=== PATIENT | male | born 1935 | race Caucasian/White ===

== ENCOUNTER 2016-06-25 07:35 | Emergency (ER) | payer OTHER ==
[~2016-06-25] VITALS: Ht 172.7 cm; Wt 80.0 kg
[~2016-06-25 07:35] MED LIST: ALLOPURINOL100 MG PO; AMLODIPINE BESYL5 MG PO; LISINOPRIL10 MG PO; LO-DOSE ASPIRIN81 M1 PO; METFORMIN HCL500 MG PO; XANAX2 MG PO
[2016-06-25 08:50] LABS: HEMATOCRIT 54.8 % (38.0-50.0); MCHC 34.5 G/DL (30.0-36.0); MCV 86.8 FL (86-99); MEAN PLAT.VOLUME 10.5 uM^3 (9.0-12.4); PLATELET COUNT 389 K/uL (156-360); RBC DIS.WIDTH-SD 50.6 % (39-53); RED BLOOD COUNT 6.31 M/uL (4.00-5.50); WHITE BLOOD COUNT 19.5 K/uL (4.1-10.2)
[2016-06-25 09:01] LABS: CHLORIDE 111 mEq/L (99-109); POTASSIUM 4.3 mEq/L (3.7-5.4); SODIUM 140 mEq/L (136-147)
[2016-06-25 09:03] LABS: GLUCOSE 185 mg/dL (70-99)
[2016-06-25 09:04] LABS: ANION GAP 10 MEQ/L (2-14)
[2016-06-25 09:05] LABS: TOTAL BILIRUBIN 2.1 mg/dL (0.0-1.0)
[2016-06-25 09:06] LABS: ALKALINE PHOSPHATASE 116 IU/L (3-129)
[2016-06-25 09:07] LABS: GFR ESTIMATE (CALCULATED) 45 mL/min/
[2016-06-25 09:08] LABS: UREA NITROGEN (BUN) 20 mg/dL (9-23)
[2016-06-25 11:09] LABS: HEMATOLOGY COMMENT 1 SMEAR COMPATIBLE; USER ID MCB
[2016-06-25 11:10] LABS: BASOPHIL COUNT 0.2 K/uL (0-0.1); EOSINOPHIL (%) 3.2 % (0-5); EOSINOPHIL COUNT 0.6 K/uL (0-0.3); IMMATURE GRANULOCYTE (%) 0.5 % (0.0-0.7); LYMPHOCYTE COUNT 1.6 K/uL (1.0-2.8); MONOCYTE (%) 5.5 % (3-12); MONOCYTE COUNT 1.1 K/uL (0-0.8)
[2016-06-25] MEDS ORDERED: CLINDAMYCIN HC300 MG PO (12:48)
[2016-06-25] MEDS ORDERED: PERCOCET 5/31 TABLET PO (12:48)
[2016-06-25 13:16] VITALS: BP 163/72
== END 2016-06-25 13:30 | disposition home or self-care (01) ==
LOC: EME 07:35
PROVIDERS: Physician Assistant
PROC: 0D9QXZZ Drainage of Anus, External Approach (ICD-10-PCS; principal; 2016-06-25)
DX: K61.0 Anal abscess (principal); E86.0 Dehydration; K92.2 Gastrointestinal hemorrhage, unspecified; I10 Essential (primary) hypertension; Z85.528 Personal history of other malignant neoplasm of kidney; Z90.5 Acquired absence of kidney; Z87.442 Personal history of urinary calculi; Z88.0 Allergy status to penicillin
CPT/HCPCS: 74176; 80053; 83605; 85025; 87070; 87075; 87076; 87077; 87185; 87186; 87205; 99281; 99284; J7120

== ENCOUNTER 2016-06-25 17:49 | Emergency (ER) | payer OTHER ==
[~2016-06-25] VITALS: Ht 172.7 cm; Wt 81.8 kg
[~2016-06-25 17:49] MED LIST changes: +CLINDAMYCIN HC300 MG PO; +PERCOCET 5/31 TABLET PO
[2016-06-25 20:26] LABS: HEMATOCRIT 54.5 % (38.0-50.0); MCH 29.8 PG (29.0-34.0); MCHC 33.8 G/DL (30.0-36.0); MCV 88.2 FL (86-99); MEAN PLAT.VOLUME 10.4 uM^3 (9.0-12.4); PLATELET COUNT 432 K/uL (156-360); RBC DIS.WIDTH-SD 51.3 % (39-53); RED BLOOD COUNT 6.18 M/uL (4.00-5.50); WHITE BLOOD COUNT 19.3 K/uL (4.1-10.2)
[2016-06-25 21:13] VITALS: BP 172/80
== END 2016-06-25 21:14 | disposition home or self-care (01) ==
LOC: EME 17:49
PROVIDERS: Emergency Medicine
DX: K61.0 Anal abscess (principal); K92.1 Melena; Z48.815 Encounter for surgical aftercare following surgery on the digestive system; Z98.890 Other specified postprocedural states; I10 Essential (primary) hypertension; Z79.82 Long term (current) use of aspirin; Z87.891 Personal history of nicotine dependence
CPT/HCPCS: 85027; 99281; 99284

== ENCOUNTER 2016-08-19 03:01 | Inpatient (IN) | payer OTHER ==
[~2016-08-19] VITALS: Ht 172.7 cm; Wt 80.0 kg
[2016-08-19 03:58] LABS: BASOPHIL COUNT 0.1 K/uL (0-0.1); EOSINOPHIL (%) 0.1 % (0-5); HEMATOCRIT 56.7 % (38.0-50.0); IMMATURE GRANULOCYTE (%) 1.3 % (0.0-0.7); IMMATURE GRANULOCYTE COUNT 0.3 K/uL; INSTRUMENT ABS NEUTROPHIL CT 22.5 K/uL; MCH 29.4 PG (29.0-34.0); MCHC 32.8 G/DL (30.0-36.0); MCV 89.6 FL (86-99); MEAN PLAT.VOLUME 10.6 uM^3 (9.0-12.4); MONOCYTE (%) 5.2 % (3-12); MONOCYTE COUNT 1.3 K/uL (0-0.8); NEUTROPHIL (%) 89.1 % (45-76); NEUTROPHIL COUNT 22.5 K/uL (1.8-6.4); PLATELET COUNT 374 K/uL (156-360); RBC DIS.WIDTH-CV 17.6 % (11.8-14.6); RED BLOOD COUNT 6.33 M/uL (4.00-5.50); WHITE BLOOD COUNT 25.3 K/uL (4.1-10.2)
[2016-08-19 04:09] LABS: CHLORIDE 109 mEq/L (99-109); POTASSIUM 4.1 mEq/L (3.7-5.4); SODIUM 139 mEq/L (136-147)
[2016-08-19 04:11] LABS: GLUCOSE 240 mg/dL (70-99)
[2016-08-19 04:12] LABS: ANION GAP 12 MEQ/L (2-14)
[2016-08-19 04:13] LABS: TOTAL BILIRUBIN 3.7 mg/dL (0.0-1.0)
[2016-08-19 04:14] LABS: ALKALINE PHOSPHATASE 115 IU/L (3-129)
[2016-08-19 04:15] LABS: GFR ESTIMATE (CALCULATED) 42 mL/min/
[2016-08-19 04:16] LABS: TROP-I INTERPRETATION NEGATIVE; TROPONIN-I 0.06 ng/mL (0.0-0.30); UREA NITROGEN (BUN) 28 mg/dL (9-23)
[2016-08-19 06:01] LABS: CARBON DIOXIDE (BICARBONATE) 24.5 MEQ/L (20-31)
[2016-08-19 06:49] LABS: POINT-OF-CARE METER ID UU13113702
[2016-08-19 07:29] VITALS: BP 146/70
[2016-08-19 07:31] VITALS: BP 146/70
[2016-08-19 09:24] LABS: INTER. NORMALIZED RATIO 1.4
[2016-08-19 09:35] LABS: ALKALINE PHOSPHATASE 98 IU/L (3-129); ANION GAP 9 MEQ/L (2-14); CHLORIDE 106 MEQ/L (99-109); GFR ESTIMATE (CALCULATED) 42 mL/min/; GLUCOSE 169 mg/dL (70-99); POTASSIUM 4.3 MEQ/L (3.7-5.4); SAMPLE HEMOLYSIS CHECK 0; SAMPLE ICTERIC CHECK 0; SAMPLE LIPEMIA CHECK 0; SODIUM 140 MEQ/L (136-147); UREA NITROGEN (BUN) 30 mg/dL (9-23)
[2016-08-19 09:40] LABS: TROP-I INTERPRETATION NEGATIVE; TROPONIN-I 0.11 ng/mL (0.0-0.30)
[2016-08-19 09:40] LABS: POINT-OF-CARE METER ID UU13113698
[2016-08-19 10:10] LABS: BASOPHIL COUNT 0.2 K/uL (0-0.1); EOSINOPHIL (%) 0.2 % (0-5); EOSINOPHIL COUNT 0.1 K/uL (0-0.3); HEMATOCRIT 53.9 % (38.0-50.0); IMMATURE GRANULOCYTE (%) 1.2 % (0.0-0.7); IMMATURE GRANULOCYTE COUNT 0.3 K/uL; INSTRUMENT ABS NEUTROPHIL CT 21.9 K/uL; LYMPHOCYTE COUNT 1.9 K/uL (1.0-2.8); MCH 29.6 PG (29.0-34.0); MCHC 33.2 G/DL (30.0-36.0); MCV 89.1 FL (86-99); MEAN PLAT.VOLUME 11.1 uM^3 (9.0-12.4); MONOCYTE (%) 6.2 % (3-12); MONOCYTE COUNT 1.6 K/uL (0-0.8); NEUTROPHIL (%) 84.5 % (45-76); NEUTROPHIL COUNT 21.9 K/uL (1.8-6.4); PLATELET COUNT 375 K/uL (156-360); RBC DIS.WIDTH-CV 16.6 % (11.8-14.6); RED BLOOD COUNT 6.05 M/uL (4.00-5.50); WHITE BLOOD COUNT 25.8 K/uL (4.1-10.2)
[2016-08-19 11:13] VITALS: BP 132/69
[2016-08-19 11:57] LABS: POINT-OF-CARE METER ID UU13113698
[2016-08-19] MEDS ORDERED: LISINOPRIL10 MG PO (15:12)
[2016-08-19] MEDS ORDERED: GABAPENTIN300 MG PO (15:12)
[2016-08-19] MEDS ORDERED: ALLOPURINOL100 MG PO (15:13)
[2016-08-19] MEDS ORDERED: ASPIRIN81 M2 PO (15:13)
[2016-08-19] MEDS ORDERED: GLUCOPHAGE500 MG PO (15:13)
[2016-08-19] MEDS ORDERED: ALPRAZOLAM2 MG PO (15:14)
[2016-08-19] MEDS ORDERED: AMLODIPINE BESYL5 MG PO (15:15)
[2016-08-19 16:13] VITALS: BP 139/69
[2016-08-19 16:50] LABS: TROP-I INTERPRETATION NEGATIVE; TROPONIN-I 0.08 ng/mL (0.0-0.30)
[2016-08-19 17:07] LABS: POINT-OF-CARE METER ID UU13113698
[2016-08-19 20:27] VITALS: BP 188/84
[2016-08-19 21:11] LABS: INFLUENZA A VIRAL ANTIGEN NEGATIVE; INFLUENZA B VIRAL ANTIGEN NEGATIVE
[2016-08-19 22:01] LABS: POINT-OF-CARE METER ID UU13113698
[2016-08-19 23:47] VITALS: BP 163/76
[2016-08-20 01:05] VITALS: BP 172/86
[2016-08-20 03:30] VITALS: BP 177/86
[2016-08-20 05:26] VITALS: BP 142/76
[2016-08-20 06:54] LABS: BASOPHIL COUNT 0.2 K/uL (0-0.1); EOSINOPHIL (%) 2.8 % (0-5); EOSINOPHIL COUNT 0.5 K/uL (0-0.3); HEMATOCRIT 52.5 % (38.0-50.0); IMMATURE GRANULOCYTE (%) 0.5 % (0.0-0.7); IMMATURE GRANULOCYTE COUNT 0.1 K/uL; LYMPHOCYTE COUNT 2.2 K/uL (1.0-2.8); MCH 29.6 PG (29.0-34.0); MCHC 32.8 G/DL (30.0-36.0); MCV 90.2 FL (86-99); MEAN PLAT.VOLUME 10.9 uM^3 (9.0-12.4); MONOCYTE (%) 4.7 % (3-12); MONOCYTE COUNT 0.9 K/uL (0-0.8); NEUTROPHIL (%) 79.5 % (45-76); PLATELET COUNT 360 K/uL (156-360); RBC DIS.WIDTH-CV 16.7 % (11.8-14.6); RBC DIS.WIDTH-SD 54.4 % (39-53); RED BLOOD COUNT 5.82 M/uL (4.00-5.50); WHITE BLOOD COUNT 18.9 K/uL (4.1-10.2)
[2016-08-20 07:07] LABS: ANION GAP 8 MEQ/L (2-14); CHLORIDE 107 MEQ/L (99-109); GFR ESTIMATE (CALCULATED) 42 mL/min/; GLUCOSE 147 mg/dL (70-99); HDL CHOLESTEROL 25 MG/DL (Desirable>=40); LDL CHOLESTEROL 52 mg/dL (Desirable<100); NON-HDL CHOLESTEROL 75 mg/dL (Desirable<160); POTASSIUM 4.6 MEQ/L (3.7-5.4); SAMPLE HEMOLYSIS CHECK 0; SAMPLE ICTERIC CHECK 0; SAMPLE LIPEMIA CHECK 0; SODIUM 139 MEQ/L (136-147); TOTAL CHOLESTEROL 100 mg/dL (Desirable<200); TRIGLYCERIDES 116 MG/DL (Normal: <150); UREA NITROGEN (BUN) 31 mg/dL (9-23)
[2016-08-20 07:45] VITALS: BP 135/97
[2016-08-20 08:26] LABS: Estimated Average Glucose 148 mg/dL (70-123); HEMOGLOBIN A1c (GLYCOHEMOGLOB) 6.8 % HGB (Below 5.7)
[2016-08-20 09:12] LABS: POINT-OF-CARE METER ID UU13113807
[2016-08-20 13:23] LABS: POINT-OF-CARE METER ID UU13113807
[2016-08-20 17:24] LABS: POINT-OF-CARE METER ID UU13113807
[2016-08-20 20:00] VITALS: BP 156/71
[2016-08-20 21:34] LABS: POINT-OF-CARE METER ID UU13113698
[2016-08-21] VITALS: BP 163/74
[2016-08-21 04:00] VITALS: BP 175/81
[2016-08-21 07:58] VITALS: BP 167/74
[2016-08-21 08:23] LABS: HEMATOCRIT 54.4 % (38.0-50.0); MCH 29.3 PG (29.0-34.0); MCHC 32.2 G/DL (30.0-36.0); MCV 91.1 FL (86-99); MEAN PLAT.VOLUME 10.7 uM^3 (9.0-12.4); PLATELET COUNT 397 K/uL (156-360); RBC DIS.WIDTH-CV 16.8 % (11.8-14.6); RBC DIS.WIDTH-SD 55.2 % (39-53); RED BLOOD COUNT 5.97 M/uL (4.00-5.50); WHITE BLOOD COUNT 16.4 K/uL (4.1-10.2)
[2016-08-21 08:35] LABS: POINT-OF-CARE METER ID UU13113807; POINT-OF-CARE USER ID 606021404
[2016-08-21 08:43] LABS: ANION GAP 8 MEQ/L (2-14); CHLORIDE 109 MEQ/L (99-109); GFR ESTIMATE (CALCULATED) 42 mL/min/; GLUCOSE 142 mg/dL (70-99); SAMPLE HEMOLYSIS CHECK 0; SAMPLE ICTERIC CHECK 0; SAMPLE LIPEMIA CHECK 0; SODIUM 142 MEQ/L (136-147); UREA NITROGEN (BUN) 27 mg/dL (9-23)
[2016-08-21 11:20] VITALS: BP 165/77
[2016-08-21 12:24] LABS: POINT-OF-CARE METER ID UU13113807
[2016-08-21 16:28] VITALS: BP 172/78
[2016-08-21 17:06] LABS: POINT-OF-CARE METER ID UU13113698; POINT-OF-CARE USER ID 606021404
[2016-08-21 20:00] VITALS: BP 177/81
[2016-08-21 21:44] LABS: POINT-OF-CARE METER ID UU13113698
[2016-08-22] VITALS (7 sets, daily range): BP systolic 119–176; BP diastolic 70–83
[2016-08-22 05:42] LABS: HEMATOCRIT 50.7 % (38.0-50.0); MCH 29.2 PG (29.0-34.0); MCV 91.4 FL (86-99); MEAN PLAT.VOLUME 10.7 uM^3 (9.0-12.4); PLATELET COUNT 378 K/uL (156-360); RBC DIS.WIDTH-CV 16.3 % (11.8-14.6); RBC DIS.WIDTH-SD 54.7 % (39-53); RED BLOOD COUNT 5.55 M/uL (4.00-5.50); WHITE BLOOD COUNT 17.1 K/uL (4.1-10.2)
[2016-08-22 06:02] LABS: ANION GAP 6 MEQ/L (2-14); CHLORIDE 108 MEQ/L (99-109); GFR ESTIMATE (CALCULATED) 45 mL/min/; GLUCOSE 147 mg/dL (70-99); POTASSIUM 4.6 MEQ/L (3.7-5.4); SAMPLE HEMOLYSIS CHECK 0; SAMPLE ICTERIC CHECK 0; SAMPLE LIPEMIA CHECK 0; SODIUM 141 MEQ/L (136-147); UREA NITROGEN (BUN) 28 mg/dL (9-23)
[2016-08-22 07:39] LABS: POINT-OF-CARE METER ID UU13113807
[2016-08-22 08:57] LABS: INTERNAL CONTROL VALID? YES
[2016-08-22 11:23] LABS: POINT-OF-CARE METER ID UU13113807
[2016-08-22 17:11] LABS: POINT-OF-CARE METER ID UU13113807
[2016-08-22 21:52] LABS: POINT-OF-CARE METER ID UU13113807
[2016-08-23 04:01] VITALS: BP 140/63
[2016-08-23 06:25] LABS: ANION GAP 9 MEQ/L (2-14); CHLORIDE 107 MEQ/L (99-109); GFR ESTIMATE (CALCULATED) 39 mL/min/; GLUCOSE 161 mg/dL (70-99); POTASSIUM 4.7 MEQ/L (3.7-5.4); SAMPLE HEMOLYSIS CHECK 0; SAMPLE ICTERIC CHECK 0; SAMPLE LIPEMIA CHECK 0; SODIUM 141 MEQ/L (136-147); UREA NITROGEN (BUN) 29 mg/dL (9-23)
[2016-08-23 06:37] LABS: HEMATOCRIT 53.3 % (38.0-50.0); MCH 29.4 PG (29.0-34.0); MCHC 32.3 G/DL (30.0-36.0); MEAN PLAT.VOLUME 10.9 uM^3 (9.0-12.4); PLATELET COUNT 414 K/uL (156-360); RBC DIS.WIDTH-CV 16.4 % (11.8-14.6); RBC DIS.WIDTH-SD 54.2 % (39-53); RED BLOOD COUNT 5.86 M/uL (4.00-5.50); WHITE BLOOD COUNT 18.3 K/uL (4.1-10.2)
[2016-08-23 08:00] VITALS: BP 153/97
[2016-08-23 08:18] LABS: POINT-OF-CARE METER ID UU13113807
[2016-08-23 12:00] VITALS: BP 153/74
[2016-08-23 13:00] LABS: POINT-OF-CARE METER ID UU13113807
[2016-08-23] MEDS ORDERED: CEFDINIR300 MG PO (14:45)
[2016-08-23] MEDS ORDERED: AMLODIPINE BESY10 MG PO (14:45)
== END 2016-08-23 15:25 | disposition home or self-care (01) | DRG 871 ==
LOC: EME → EDBD 03:01 → EDOF 05:35 → 4SOUTH 05:35
PROVIDERS: Emergency Medicine; Hospitalist; Internal Medicine; Physician Assistant Medical
DX: A41.9 Sepsis, unspecified organism (principal); J18.9 Pneumonia, unspecified organism; I12.9 Hypertensive chronic kidney disease with stage 1 through stage 4 chronic kidney disease, or unspecified chronic kidney disease; E11.22 Type 2 diabetes mellitus with diabetic chronic kidney disease; N18.3 Chronic kidney disease, stage 3 (moderate); E86.0 Dehydration; Z85.528 Personal history of other malignant neoplasm of kidney; Z90.5 Acquired absence of kidney; R94.31 Abnormal electrocardiogram [ECG] [EKG]; R53.1 Weakness; R79.89 Other specified abnormal findings of blood chemistry
CPT/HCPCS: 70140; 70450; 70551; 71010; 80048; 80053; 80061; 81003; 82803; 82948; 83036; 83605; 83735; 83880; 84484; 85025; 85025 91; 85027; 85610; 85730; 87040; 87070; 87086; 87205; 87449; 87502; 92610 GN; 93005; 93306; 93880; 94640; 94640 76; 94799; 97530 GO; 97530 GP; 99202; 99281; 99285; J0456; J0696; J1644; J1815; J7050; J7120

== ENCOUNTER 2016-12-10 16:24 | Inpatient (IN) | payer OTHER ==
[~2016-12-10] VITALS: Ht 172.7 cm; Wt 79.3 kg
[~2016-12-10 16:24] MED LIST changes: +AMLODIPINE BESY10 MG PO; +ASPIRIN81 M2 PO; +CEFDINIR300 MG PO
[2016-12-10 17:26] LABS: CHLORIDE 109 mEq/L (99-109); POTASSIUM 4.9 mEq/L (3.7-5.4); SODIUM 141 mEq/L (136-147)
[2016-12-10 17:28] LABS: GLUCOSE 125 mg/dL (70-99)
[2016-12-10 17:29] LABS: ANION GAP 10 MEQ/L (2-14)
[2016-12-10 17:32] LABS: GFR ESTIMATE (CALCULATED) 37 mL/min/; INTER. NORMALIZED RATIO 1.1; PROTHROMBIN TIME 12.6 SEC (10.2-12.9)
[2016-12-10 17:33] LABS: HEMATOCRIT 62.1 % (38.0-50.0); MCH 27.9 PG (29.0-34.0); MCV 87.2 FL (86-99); MEAN PLAT.VOLUME 10.7 uM^3 (9.0-12.4); PLATELET COUNT 414 K/uL (156-360); RBC DIS.WIDTH-CV 16.9 % (11.8-14.6); RBC DIS.WIDTH-SD 47.7 % (39-53); RED BLOOD COUNT 7.12 M/uL (4.00-5.50); UREA NITROGEN (BUN) 26 mg/dL (9-23); WHITE BLOOD COUNT 18.8 K/uL (4.1-10.2)
[2016-12-10 17:35] LABS: PTT 47.8 SEC (25-37)
[2016-12-10 20:45] VITALS: BP 168/80
[2016-12-10 22:53] VITALS: BP 168/80
[2016-12-11 01:29] LABS: INTER. NORMALIZED RATIO 1.2; PROTHROMBIN TIME 13.2 SEC (10.2-12.9)
[2016-12-11 02:13] LABS: PTT ND SEC (25-37)
[2016-12-11 02:52] LABS: HEMATOCRIT 59.7 % (38.0-50.0); MCH 28.2 PG (29.0-34.0); MCHC 32.2 G/DL (30.0-36.0); MCV 87.7 FL (86-99); MEAN PLAT.VOLUME 10.4 uM^3 (9.0-12.4); PLATELET COUNT 399 K/uL (156-360); RBC DIS.WIDTH-CV 16.4 % (11.8-14.6); RBC DIS.WIDTH-SD 48.3 % (39-53); RED BLOOD COUNT 6.81 M/uL (4.00-5.50); WHITE BLOOD COUNT 19.3 K/uL (4.1-10.2)
[2016-12-11 03:25] LABS: CHLORIDE 107 mEq/L (99-109); POTASSIUM 5.2 mEq/L (3.7-5.4); SODIUM 139 mEq/L (136-147)
[2016-12-11 03:28] LABS: ANION GAP 9 MEQ/L (2-14); GLUCOSE 197 mg/dL (70-99)
[2016-12-11 03:31] LABS: ALKALINE PHOSPHATASE 146 IU/L (3-129); GFR ESTIMATE (CALCULATED) 34 mL/min/
[2016-12-11 03:32] LABS: UREA NITROGEN (BUN) 29 mg/dL (9-23)
[2016-12-11 04:19] VITALS: BP 166/72
[2016-12-11] MEDS ORDERED: LISINOPRIL10 MG PO ×2 (08:10→09:05)
[2016-12-11 08:37] VITALS: BP 160/77
[2016-12-11] MEDS ORDERED: GABAPENTIN300 MG PO (09:05)
[2016-12-11] MEDS ORDERED: ALLOPURINOL100 MG PO (09:08)
[2016-12-11] MEDS ORDERED: GLUCOPHAGE500 MG PO (09:08)
[2016-12-11] MEDS ORDERED: ALPRAZOLAM2 MG PO (09:08)
[2016-12-11] MEDS ORDERED: NORVASC10 MG PO (09:11)
[2016-12-11] MEDS ORDERED: FLUOXETINE HCL20 MG PO (09:13)
[2016-12-11 17:41] LABS: ABS NEUTROPHIL COUNT 16.1; ANISOCYTOSIS 1+; ATYPICAL LYMPHOCYTE 2.6 %; BAND NEUTROPHILS 3.5 % (0-8.0); BASOPHILS 2.6 %; EOSINOPHIL ABS CT 0.2; EOSINOPHILS 0.9 % (0-5.0); HEMATOCRIT 61.6 % (38.0-50.0); LYMPHOCYTES 7.8 % (15.0-45.0); MCH 28.7 PG (29.0-34.0); MCHC 32.5 G/DL (30.0-36.0); MCV 88.4 FL (86-99); MEAN PLAT.VOLUME 10.6 uM^3 (9.0-12.4); PLATELET COUNT 398 K/uL (156-360); RBC DIS.WIDTH-CV 17.6 % (11.8-14.6); RBC DIS.WIDTH-SD 49.7 % (39-53); RED BLOOD COUNT 6.97 M/uL (4.00-5.50); SEG.NEUTROPHILS 80.9 % (46.0-76.0); WHITE BLOOD COUNT 19.1 K/uL (4.1-10.2)
[2016-12-11 21:03] VITALS: BP 180/84
[2016-12-11 23:37] VITALS: BP 152/80
[2016-12-12 07:59] VITALS: BP 167/80
[2016-12-12 10:08] LABS: HEMATOCRIT 59.6 % (38.0-50.0); MCH 28.8 PG (29.0-34.0); MCHC 32.6 G/DL (30.0-36.0); MCV 88.4 FL (86-99); MEAN PLAT.VOLUME 10.4 uM^3 (9.0-12.4); PLATELET COUNT 335 K/uL (156-360); RBC DIS.WIDTH-CV 17.2 % (11.8-14.6); RBC DIS.WIDTH-SD 50.3 % (39-53); RED BLOOD COUNT 6.74 M/uL (4.00-5.50); WHITE BLOOD COUNT 18.1 K/uL (4.1-10.2)
[2016-12-12 10:30] LABS: ANION GAP 8 MEQ/L (2-14); CHLORIDE 107 MEQ/L (99-109); GFR ESTIMATE (CALCULATED) 34 mL/min/; GLUCOSE 224 mg/dL (70-99); POTASSIUM 5.1 MEQ/L (3.7-5.4); SAMPLE HEMOLYSIS CHECK 0; SAMPLE ICTERIC CHECK 0; SAMPLE LIPEMIA CHECK 0; SODIUM 138 MEQ/L (136-147); UREA NITROGEN (BUN) 28 mg/dL (9-23)
[2016-12-12 12:03] VITALS: BP 162/91
[2016-12-12 16:09] VITALS: BP 159/74
[2016-12-12 20:52] VITALS: BP 161/76
[2016-12-13] VITALS (9 sets, daily range): BP systolic 112–196; BP diastolic 51–88
[2016-12-13 04:17] LABS: HEMATOCRIT 58.1 % (38.0-50.0); MCH 28.1 PG (29.0-34.0); MCV 87.8 FL (86-99); MEAN PLAT.VOLUME 10.7 uM^3 (9.0-12.4); PLATELET COUNT 354 K/uL (156-360); RBC DIS.WIDTH-CV 16.2 % (11.8-14.6); RBC DIS.WIDTH-SD 47.9 % (39-53); RED BLOOD COUNT 6.62 M/uL (4.00-5.50); WHITE BLOOD COUNT 17.7 K/uL (4.1-10.2)
[2016-12-13 04:22] LABS: CHLORIDE 108 mEq/L (99-109); POTASSIUM 4.4 mEq/L (3.7-5.4); SODIUM 138 mEq/L (136-147)
[2016-12-13 04:24] LABS: GLUCOSE 141 mg/dL (70-99)
[2016-12-13 04:25] LABS: ANION GAP 9 MEQ/L (2-14)
[2016-12-13 04:28] LABS: GFR ESTIMATE (CALCULATED) 37 mL/min/; UREA NITROGEN (BUN) 27 mg/dL (9-23)
[2016-12-13 16:38] LABS: ADD MIUA? YES; BILIRUBIN NEGATIVE; BLOOD SMALL; COLOR YELLOW ((YELLOW)); GLUCOSE (STRIP) 150; KETONES 5; LEUKOCYTES NEGATIVE; NITRITE NEGATIVE; PROTEIN (STRIP) >=500; SPECIFIC GRAVITY 1.015 (1.000-1.030); UROBILINOGEN 0.2 MG/DL (0.2-1.0)
[2016-12-13 16:44] LABS: BACTERIA NONE SEEN /HPF; EPITHELIAL CELLS RARE /HPF; MUCUS TRACE /LPF; RED BLOOD CELLS 0-5 /HPF (0-5); WHITE BLOOD CELLS 0-5 /HPF (0-5)
[2016-12-14 07:02] VITALS: BP 182/88
[2016-12-14 09:11] LABS: PTT 47.2 SEC (25-37)
[2016-12-14 09:25] LABS: HEMATOCRIT 61.5 % (38.0-50.0); MCH 27.4 PG (29.0-34.0); MCHC 31.4 G/DL (30.0-36.0); MCV 87.4 FL (86-99); MEAN PLAT.VOLUME 10.5 uM^3 (9.0-12.4); PLATELET COUNT 405 K/uL (156-360); RBC DIS.WIDTH-CV 17.3 % (11.8-14.6); RBC DIS.WIDTH-SD 49.7 % (39-53); RED BLOOD COUNT 7.04 M/uL (4.00-5.50); WHITE BLOOD COUNT 23.1 K/uL (4.1-10.2)
[2016-12-14 12:14] LABS: POINT-OF-CARE METER ID UU14208753
[2016-12-14 12:48] LABS: TROP-I INTERPRETATION POSITIVE; TROPONIN-I 2.21 ng/mL (0.0-0.30)
[2016-12-14 13:44] VITALS: BP 167/64
[2016-12-14 14:08] LABS: INTER. NORMALIZED RATIO 1.2; PROTHROMBIN TIME 13.1 SEC (10.2-12.9)
[2016-12-14 14:37] LABS: TROP-I INTERPRETATION POSITIVE; TROPONIN-I 2.45 ng/mL (0.0-0.30)
[2016-12-14 19:25] VITALS: BP 170/77
[2016-12-14 20:21] LABS: TROP-I INTERPRETATION POSITIVE
[2016-12-15] VITALS (7 sets, daily range): BP systolic 136–154; BP diastolic 64–79
[2016-12-15 05:15] LABS: INTER. NORMALIZED RATIO 1.2
[2016-12-15 05:18] LABS: PTT 49.2 SEC (25-37)
[2016-12-15 05:56] LABS: ANION GAP 7 MEQ/L (2-14); CHLORIDE 107 MEQ/L (99-109); GFR ESTIMATE (CALCULATED) 39 mL/min/; POTASSIUM 3.9 MEQ/L (3.7-5.4); SAMPLE HEMOLYSIS CHECK 0; SAMPLE ICTERIC CHECK 0; SAMPLE LIPEMIA CHECK 0; SODIUM 136 MEQ/L (136-147); UREA NITROGEN (BUN) 24 mg/dL (9-23)
[2016-12-15 05:58] LABS: GLUCOSE 103 mg/dL (70-99)
[2016-12-15 06:57] LABS: HEMATOCRIT 50.9 % (38.0-50.0); MCH 29.2 PG (29.0-34.0); MCHC 33.6 G/DL (30.0-36.0); MCV 86.9 FL (86-99); MEAN PLAT.VOLUME 10.9 uM^3 (9.0-12.4); PLATELET COUNT 362 K/uL (156-360); RBC DIS.WIDTH-CV 16.1 % (11.8-14.6); RBC DIS.WIDTH-SD 48.3 % (39-53); RED BLOOD COUNT 5.86 M/uL (4.00-5.50); WHITE BLOOD COUNT 19.9 K/uL (4.1-10.2)
[2016-12-15 09:18] LABS: TROP-I INTERPRETATION POSITIVE; TROPONIN-I 5.02 ng/mL (0.0-0.30)
[2016-12-15 18:45] LABS: INTER. NORMALIZED RATIO 1.2
[2016-12-15 18:48] LABS: PTT 67.5 SEC (25-37)
[2016-12-16 03:56] VITALS: BP 133/63
[2016-12-16 06:42] LABS: INTER. NORMALIZED RATIO 1.2; PROTHROMBIN TIME 13.1 SEC (10.2-12.9)
[2016-12-16 06:45] LABS: PTT 51.2 SEC (25-37)
[2016-12-16 08:32] LABS: ANION GAP 8 MEQ/L (2-14); CHLORIDE 110 MEQ/L (99-109); GFR ESTIMATE (CALCULATED) 37 mL/min/; GLUCOSE 131 mg/dL (70-99); POTASSIUM 4.5 MEQ/L (3.7-5.4); SAMPLE HEMOLYSIS CHECK 0; SAMPLE ICTERIC CHECK 0; SAMPLE LIPEMIA CHECK 0; SODIUM 139 MEQ/L (136-147); UREA NITROGEN (BUN) 31 mg/dL (9-23)
[2016-12-16 08:34] VITALS: BP 165/74
[2016-12-16 08:34] LABS: HEMATOCRIT 52.3 % (38.0-50.0); MCH 27.7 PG (29.0-34.0); MCHC 31.9 G/DL (30.0-36.0); MCV 86.9 FL (86-99); MEAN PLAT.VOLUME 11.5 uM^3 (9.0-12.4); PLATELET COUNT 367 K/uL (156-360); RBC DIS.WIDTH-CV 16.3 % (11.8-14.6); RBC DIS.WIDTH-SD 48.8 % (39-53); RED BLOOD COUNT 6.02 M/uL (4.00-5.50); WHITE BLOOD COUNT 16.8 K/uL (4.1-10.2)
[2016-12-16 08:38] LABS: TROP-I INTERPRETATION POSITIVE; TROPONIN-I 7.16 ng/mL (0.0-0.30)
[2016-12-16 11:58] VITALS: BP 156/72
[2016-12-16 16:00] VITALS: BP 129/61
[2016-12-16 18:00] LABS: INTER. NORMALIZED RATIO 1.3; PROTHROMBIN TIME 14.6 SEC (10.2-12.9)
[2016-12-16 18:03] LABS: PTT 78.2 SEC (25-37)
[2016-12-16 20:10] VITALS: BP 152/69
[2016-12-16 23:21] VITALS: BP 131/61
[2016-12-17 04:16] VITALS: BP 138/64
[2016-12-17 07:33] LABS: INTER. NORMALIZED RATIO 1.4; PROTHROMBIN TIME 16.1 SEC (10.2-12.9)
[2016-12-17 07:34] LABS: HEMATOCRIT 52.6 % (38.0-50.0); MCH 28.6 PG (29.0-34.0); MCHC 32.9 G/DL (30.0-36.0); MCV 87.1 FL (86-99); MEAN PLAT.VOLUME 11.2 uM^3 (9.0-12.4); PLATELET COUNT 334 K/uL (156-360); RBC DIS.WIDTH-CV 17.4 % (11.8-14.6); RBC DIS.WIDTH-SD 49.9 % (39-53); RED BLOOD COUNT 6.04 M/uL (4.00-5.50); WHITE BLOOD COUNT 15.7 K/uL (4.1-10.2)
[2016-12-17 07:36] LABS: PTT 68.2 SEC (25-37)
[2016-12-17 07:39] LABS: ANION GAP 9 MEQ/L (2-14); CHLORIDE 110 MEQ/L (99-109); GFR ESTIMATE (CALCULATED) 39 mL/min/; GLUCOSE 122 mg/dL (70-99); POTASSIUM 4.7 MEQ/L (3.7-5.4); SAMPLE HEMOLYSIS CHECK 1; SAMPLE ICTERIC CHECK 0; SAMPLE LIPEMIA CHECK 0; SODIUM 141 MEQ/L (136-147); UREA NITROGEN (BUN) 27 mg/dL (9-23)
[2016-12-17 07:53] LABS: TROP-I INTERPRETATION POSITIVE; TROPONIN-I 7.47 ng/mL (0.0-0.30)
[2016-12-17 08:40] VITALS: BP 176/77
[2016-12-17 10:51] LABS: JAK2 Mutation Result DETECTED (())
[2016-12-17 11:42] VITALS: BP 132/60
[2016-12-17 16:16] VITALS: BP 137/62
[2016-12-17 23:24] VITALS: BP 149/70
[2016-12-18 07:49] LABS: HDL CHOLESTEROL 25 MG/DL (Desirable>=40); LDL CHOLESTEROL 58 mg/dL (Desirable<100); NON-HDL CHOLESTEROL 93 mg/dL (Desirable<160); TOTAL CHOLESTEROL 118 mg/dL (Desirable<200); TRIGLYCERIDES 174 MG/DL (Normal: <150)
[2016-12-18 07:51] LABS: INTER. NORMALIZED RATIO 1.8; PROTHROMBIN TIME 19.9 SEC (10.2-12.9)
[2016-12-18 07:54] LABS: PTT 56.9 SEC (25-37)
[2016-12-18 08:46] VITALS: BP 172/77
[2016-12-18 12:13] VITALS: BP 153/74
[2016-12-18 16:55] VITALS: BP 150/70
[2016-12-18 19:15] VITALS: BP 153/72
[2016-12-18 23:30] VITALS: BP 159/72
[2016-12-19 02:44] VITALS: BP 168/77
[2016-12-19 06:58] LABS: HEMATOCRIT 52.8 % (38.0-50.0); MCH 27.4 PG (29.0-34.0); MCHC 31.4 G/DL (30.0-36.0); MCV 87.1 FL (86-99); MEAN PLAT.VOLUME 10.8 uM^3 (9.0-12.4); PLATELET COUNT 359 K/uL (156-360); RBC DIS.WIDTH-CV 15.9 % (11.8-14.6); RBC DIS.WIDTH-SD 49.8 % (39-53); RED BLOOD COUNT 6.06 M/uL (4.00-5.50); WHITE BLOOD COUNT 15.6 K/uL (4.1-10.2)
[2016-12-19 07:04] LABS: INTER. NORMALIZED RATIO 2.2; PROTHROMBIN TIME 24.9 SEC (10.2-12.9)
[2016-12-19 07:06] LABS: PTT 59.8 SEC (25-37)
[2016-12-19 08:06] VITALS: BP 158/74
[2016-12-19 11:50] VITALS: BP 174/73
[2016-12-19 15:47] VITALS: BP 159/70
[2016-12-19 23:31] VITALS: BP 189/85
[2016-12-20] VITALS: BP 150/80
[2016-12-20 06:24] VITALS: BP 172/85
[2016-12-20 06:45] LABS: PROTHROMBIN TIME 22.5 SEC (10.2-12.9)
[2016-12-20 08:06] VITALS: BP 159/73
[2016-12-20 10:18] LABS: HEMATOCRIT 55.1 % (38.0-50.0); MCHC 32.1 G/DL (30.0-36.0); PLATELET COUNT 329 K/uL (156-360); RBC DIS.WIDTH-SD 50.4 % (39-53); RED BLOOD COUNT 6.33 M/uL (4.00-5.50)
[2016-12-20 10:44] LABS: ANION GAP 10 MEQ/L (2-14); CHLORIDE 109 MEQ/L (99-109); GFR ESTIMATE (CALCULATED) 48 mL/min/; GLUCOSE 258 mg/dL (70-99); POTASSIUM 4.6 MEQ/L (3.7-5.4); SAMPLE HEMOLYSIS CHECK 0; SAMPLE ICTERIC CHECK 0; SAMPLE LIPEMIA CHECK 0; SODIUM 139 MEQ/L (136-147); UREA NITROGEN (BUN) 28 mg/dL (9-23)
[2016-12-20 11:18] VITALS: BP 144/65
[2016-12-20] MEDS ORDERED: ATORVASTATIN CA40 MG PO (11:37)
[2016-12-20] MEDS ORDERED: ASPIR-LOW81 MG PO (11:38)
[2016-12-20] MEDS ORDERED: CLONIDINE HCL0.1 MG PO (11:38)
[2016-12-20] MEDS ORDERED: COUMADIN1 MG PO (11:46)
[2016-12-20] MEDS ORDERED: LOPRESSOR50 MG PO (11:48)
[2016-12-20] MEDS ORDERED: ALPRAZOLAM0.5 MG PO (11:54)
[2016-12-20] MEDS ORDERED: GLIPIZIDE5 MG PO (11:59)
== END 2016-12-20 12:44 | disposition home health service (06) | DRG 280 ==
LOC: EME 16:24 → EDOF 20:48 → 3EAST 20:48 → ENRESERV 20:50 → 3EAST 22:09
PROVIDERS: Emergency Medicine; Hospitalist; Internal Medicine; Internal Medicine Cardiovascular Disease; Internal Medicine Hematology & Oncology; Nurse Practitioner Family; Physician Assistant
DX: I75.011 Atheroembolism of right upper extremity (principal); G93.40 Encephalopathy, unspecified; I21.4 Non-ST elevation (NSTEMI) myocardial infarction; N17.9 Acute kidney failure, unspecified; F05 Delirium due to known physiological condition; F03.90 Unspecified dementia, unspecified severity, without behavioral disturbance, psychotic disturbance, mood disturbance, and anxiety; D75.1 Secondary polycythemia; N18.9 Chronic kidney disease, unspecified; D47.3 Essential (hemorrhagic) thrombocythemia; E78.2 Mixed hyperlipidemia; F17.210 Nicotine dependence, cigarettes, uncomplicated; H91.90 Unspecified hearing loss, unspecified ear; I12.9 Hypertensive chronic kidney disease with stage 1 through stage 4 chronic kidney disease, or unspecified chronic kidney disease; I48.2 Chronic atrial fibrillation; N40.0 Benign prostatic hyperplasia without lower urinary tract symptoms; M19.90 Unspecified osteoarthritis, unspecified site; L29.8 Other pruritus; I36.1 Nonrheumatic tricuspid (valve) insufficiency; I34.0 Nonrheumatic mitral (valve) insufficiency; I27.2 Other secondary pulmonary hypertension; Z86.73 Personal history of transient ischemic attack (TIA), and cerebral infarction without residual deficits; Z79.01 Long term (current) use of anticoagulants; Z79.82 Long term (current) use of aspirin; Z87.442 Personal history of urinary calculi; Z85.528 Personal history of other malignant neoplasm of kidney; Z90.5 Acquired absence of kidney; Z85.820 Personal history of malignant melanoma of skin; Z88.0 Allergy status to penicillin; Z60.2 Problems related to living alone
CPT/HCPCS: 71010; 80048; 80053; 80061; 81003; 81270 90; 82565; 82668 90; 82728; 82948; 83605; 84484; 84520; 85007; 85025; 85027; 85060; 85610; 85730; 87040; 87086; 93005; 93306; 93931; 94799; 97530 GO; 97530 GP; 99195; 99281; 99285; J0360; J1650; J7030

== ENCOUNTER 2017-01-07 09:12 | Observation (INO) | payer OTHER ==
[~2017-01-07] VITALS: Ht 172.7 cm; Wt 77.5 kg
[~2017-01-07 09:12] MED LIST changes: +ALPRAZOLAM0.5 MG PO; +ALPRAZOLAM2 MG PO; +ASPIR-LOW81 MG PO; +ATORVASTATIN CA40 MG PO; +CLONIDINE HCL0.1 MG PO; +COUMADIN1 MG PO; +FLUOXETINE HCL20 MG PO; +GABAPENTIN300 MG PO; +GLIPIZIDE5 MG PO; +GLUCOPHAGE500 MG PO; +LOPRESSOR50 MG PO; +NORVASC10 MG PO
[2017-01-07 11:45] LABS: HEMATOCRIT 59.3 % (38.0-50.0); MCH 26.7 PG (29.0-34.0); MCHC 31.9 G/DL (30.0-36.0); MCV 83.6 FL (86-99); MEAN PLAT.VOLUME 9.9 uM^3 (9.0-12.4); PLATELET COUNT 444 K/uL (156-360); RBC DIS.WIDTH-CV 16.8 % (11.8-14.6); RBC DIS.WIDTH-SD 45.1 % (39-53); RED BLOOD COUNT 7.09 M/uL (4.00-5.50); WHITE BLOOD COUNT 13.1 K/uL (4.1-10.2)
[2017-01-07 11:49] LABS: CHLORIDE 107 mEq/L (99-109); SODIUM 139 mEq/L (136-147)
[2017-01-07 11:50] LABS: GLUCOSE 123 mg/dL (70-99)
[2017-01-07 11:52] LABS: ANION GAP 13 MEQ/L (2-14)
[2017-01-07 11:54] LABS: GFR ESTIMATE (CALCULATED) 39 mL/min/
[2017-01-07 11:55] LABS: UREA NITROGEN (BUN) 26 mg/dL (9-23)
[2017-01-07] MEDS ORDERED: GABAPENTIN300 MG PO (12:13)
[2017-01-07] MEDS ORDERED: ULTRAM50 MG PO (12:14)
[2017-01-07] MEDS ORDERED: HYDREA500 MG PO (12:14)
[2017-01-07] MEDS ORDERED: ENDOCET 5-3251 EACH PO (17:01)
[2017-01-07 18:13] VITALS: BP 185/85
[2017-01-07 21:53] LABS: POINT-OF-CARE METER ID UU14162513
[2017-01-07 23:38] VITALS: BP 163/63
[2017-01-07 23:54] LABS: INTER. NORMALIZED RATIO 4.8; PROTHROMBIN TIME 56.7 SEC (10.2-12.9)
[2017-01-08 04:00] VITALS: BP 164/83
[2017-01-08 05:49] LABS: HEMATOCRIT 55.1 % (38.0-50.0); MCHC 33.2 G/DL (30.0-36.0); MCV 84.3 FL (86-99); MEAN PLAT.VOLUME 9.9 uM^3 (9.0-12.4); PLATELET COUNT 390 K/uL (156-360); RBC DIS.WIDTH-CV 16.9 % (11.8-14.6); RBC DIS.WIDTH-SD 45.7 % (39-53); RED BLOOD COUNT 6.54 M/uL (4.00-5.50); WHITE BLOOD COUNT 12.1 K/uL (4.1-10.2)
[2017-01-08 06:15] LABS: INTER. NORMALIZED RATIO 2.6; PROTHROMBIN TIME 29.6 SEC (10.2-12.9)
[2017-01-08 06:21] LABS: ANION GAP 9 MEQ/L (2-14); CHLORIDE 107 MEQ/L (99-109); GFR ESTIMATE (CALCULATED) 42 mL/min/; GLUCOSE 101 mg/dL (70-99); POTASSIUM 5.2 MEQ/L (3.7-5.4); SAMPLE HEMOLYSIS CHECK 0; SAMPLE ICTERIC CHECK 1; SAMPLE LIPEMIA CHECK 0; SODIUM 139 MEQ/L (136-147); UREA NITROGEN (BUN) 26 mg/dL (9-23)
[2017-01-08 07:26] VITALS: BP 176/88
[2017-01-08 11:51] VITALS: BP 177/83
[2017-01-08 12:13] LABS: POINT-OF-CARE METER ID UU13113831
[2017-01-08] MEDS ORDERED: COUMADIN2.5 MG PO (14:03)
== END 2017-01-08 15:35 | disposition home or self-care (01) ==
LOC: EME 09:12 → EDOF 16:13 → 5WEST 16:13 → ENRESERV 16:18 → 5WEST 17:57
PROVIDERS: Internal Medicine; Nurse Practitioner Family
DX: D68.8 Other specified coagulation defects (principal); R04.0 Epistaxis; D75.1 Secondary polycythemia; T45.515A Adverse effect of anticoagulants, initial encounter; S80.11XA Contusion of right lower leg, initial encounter; M79.641 Pain in right hand; I99.8 Other disorder of circulatory system; I10 Essential (primary) hypertension; D72.829 Elevated white blood cell count, unspecified; I48.91 Unspecified atrial fibrillation; E78.5 Hyperlipidemia, unspecified; Z85.528 Personal history of other malignant neoplasm of kidney; N40.0 Benign prostatic hyperplasia without lower urinary tract symptoms; Z85.820 Personal history of malignant melanoma of skin; Z90.5 Acquired absence of kidney; Z87.891 Personal history of nicotine dependence; Z79.01 Long term (current) use of anticoagulants; Z79.4 Long term (current) use of insulin; K21.9 Gastro-esophageal reflux disease without esophagitis; M19.90 Unspecified osteoarthritis, unspecified site; Z86.73 Personal history of transient ischemic attack (TIA), and cerebral infarction without residual deficits; Z87.442 Personal history of urinary calculi; Z88.0 Allergy status to penicillin; W22.03XA Walked into furniture, initial encounter
CPT/HCPCS: 70450; 73610; 73700; 80048; 82948; 85027; 85610; 85730; 99281; 99285; G0378; G8978 GP CH; G8979 GP CH; G8980 GP CH; G8987 GO CH; G8988 GO CH; G8989 GO CH; J3430; J7030; J7050

== ENCOUNTER 2017-10-07 17:14 | Emergency (ER) | payer OTHER ==
[~2017-10-07] VITALS: Ht 172.7 cm; Wt 80.6 kg
[~2017-10-07 17:14] MED LIST changes: +COUMADIN2.5 MG PO; +ENDOCET 5-3251 EACH PO; +FLOMAX0.4 MG PO; +GLIPIZIDE ER2.5 MG PO; +HYDREA500 MG PO; +ULTRAM50 MG PO; +WARFARIN SODIU2.5 MG PO
[2017-10-07 20:08] LABS: APPEARANCE CLEAR ((CLEAR)); BILIRUBIN NEGATIVE; BLOOD NEGATIVE; COLOR YELLOW ((YELLOW)); GLUCOSE (STRIP) >=500; KETONES NEGATIVE; LEUKOCYTES NEGATIVE; NITRITE NEGATIVE; PROTEIN (STRIP) >=500; SPECIFIC GRAVITY 1.013 (1.000-1.030); UROBILINOGEN 0.2 MG/DL (0.2-1.0)
[2017-10-07 20:20] LABS: BASOPHIL (%) 0.9 % (0-1); BASOPHIL COUNT 0.1 K/uL (0-0.1); EOSINOPHIL (%) 2.5 % (0-5); EOSINOPHIL COUNT 0.3 K/uL (0-0.3); HEMATOCRIT 39.2 % (38.0-50.0); HEMOGLOBIN 13.9 G/DL (12.5-16.6); IMMATURE GRANULOCYTE (%) 0.8 % (0.0-0.7); LYMPHOCYTE (%) 21.7 % (15-42); LYMPHOCYTE COUNT 2.5 K/uL (1.0-2.8); MCH 37.3 PG (29.0-34.0); MCHC 35.5 G/DL (30.0-36.0); MCV 105.1 FL (86-99); MONOCYTE (%) 5.7 % (3-12); MONOCYTE COUNT 0.7 K/uL (0-0.8); NEUTROPHIL (%) 68.4 % (45-76); NEUTROPHIL COUNT 7.9 K/uL (1.8-6.4); PLATELET COUNT 258 K/uL (156-360); RBC DIS.WIDTH-CV 13.8 % (11.8-14.6); RBC DIS.WIDTH-SD 52.3 % (39-53); RED BLOOD COUNT 3.73 M/uL (4.00-5.50); WHITE BLOOD COUNT 11.5 K/uL (4.1-10.2)
[2017-10-07 20:29] LABS: ALBUMIN 4.2 g/dL (3.2-4.8); CHLORIDE 105 mEq/L (99-109); POTASSIUM 4.6 mEq/L (3.7-5.4); SODIUM 138 mEq/L (136-147)
[2017-10-07 20:31] LABS: GLUCOSE 198 mg/dL (70-99); TOTAL PROTEIN 7.5 g/dL (6.4-8.3)
[2017-10-07 20:33] LABS: TOTAL BILIRUBIN 1.2 mg/dL (0.0-1.0)
[2017-10-07 20:34] LABS: ALKALINE PHOSPHATASE 126 IU/L (3-129)
[2017-10-07 20:35] LABS: CREATININE 1.8 mg/dL (0.6-1.3); GFR ESTIMATE (CALCULATED) 39 mL/min/ (58.99-99999)
[2017-10-07 20:36] LABS: AST (GOT) 32 IU/L (2-34); UREA NITROGEN (BUN) 31 mg/dL (9-23)
[2017-10-07 20:38] LABS: ALT (GPT) 40 IU/L (3-49)
[2017-10-07 20:43] LABS: BACTERIA NONE SEEN /HPF; EPITHELIAL CELLS NONE SEEN /HPF; HYALINE CASTS 0-5 /LPF; MUCUS TRACE /LPF; RED BLOOD CELLS 0-5 /HPF (0-5); WHITE BLOOD CELLS 0-5 /HPF (0-5)
[2017-10-07 22:04] VITALS: BP 149/88
== END 2017-10-07 22:04 | disposition home or self-care (01) ==
LOC: EME 17:14
PROVIDERS: Emergency Medicine
DX: E11.65 Type 2 diabetes mellitus with hyperglycemia (principal); E11.22 Type 2 diabetes mellitus with diabetic chronic kidney disease; I12.9 Hypertensive chronic kidney disease with stage 1 through stage 4 chronic kidney disease, or unspecified chronic kidney disease; N18.9 Chronic kidney disease, unspecified; K21.9 Gastro-esophageal reflux disease without esophagitis; H91.90 Unspecified hearing loss, unspecified ear; Z87.442 Personal history of urinary calculi; Z79.01 Long term (current) use of anticoagulants; Z86.718 Personal history of other venous thrombosis and embolism; Z87.891 Personal history of nicotine dependence; Z85.9 Personal history of malignant neoplasm, unspecified; Z89.021 Acquired absence of right finger(s); Z88.0 Allergy status to penicillin
CPT/HCPCS: 80053; 81003; 82800; 82948; 85025; 99281; 99284